=== PATIENT | male | born 1940 ===

== ENCOUNTER 2023-12-15 09:30 | Outpatient (CLI) | payer MEDICARE, OTHER | END 2023-12-15 09:31 | disposition home or self-care (01) | LOC: BICRAD 09:30 | PROVIDERS: ATTEND Nurse Practitioner Family | DX: M54.2 Cervicalgia (principal); M25.512 Pain in left shoulder; M47.812 Spondylosis without myelopathy or radiculopathy, cervical region | CPT/HCPCS: 72050 ==